=== PATIENT | female | born 1965 | race Hispanic/Latino ===

== ENCOUNTER 2017-12-25 15:14 | Outpatient (CLI) | payer OTHER ==
--- NOTE | 2017-12-25 16:46 | RAD ---
LEFT ELBOW RADIOGRAPHS FOUR VIEWS: Date: 12-25-17 Provided Clinical History: Left elbow pain. FINDINGS: There is no evidence for fracture or other acute osseous abnormality. Alignment appears anatomic. Karla nt spaces appear preserved. No evidence for elbow joint capsular distention. IMPRESSION: No evidence for an acute osseous abnormality or significant arthropathy. POS: [facility]
--- NOTE | 2017-12-25 17:29 | MRI ---
MRI OF THE LEFT ELBOW: Date: 12/25/17 PROVIDED CLINICAL HISTORY: Lateral epicondylitis. FINDINGS: The biceps, brachialis, and triceps insertions appear normal. There is low grade partial thickness undersurface tearing involving the common extensor tendon origin . There is minimal partial thickness interstitial tearing involving the common flexor tendon origin. The medial and lateral elbow ligaments appear intact. The amount of fluid within the elbow joint appears physiologic. No focal concerning regional marrow or muscular signal abnormality is evident. The courses of the reg ional major neurovascular structures appear unremarkable. IMPRESSION: 1. Partial thickness undersurface tearing involving the common extensor tendon origin. 2. Small partial thickness interstitial tear involving the common extensor tendon origin. POS: [facility]
== END 2017-12-25 15:15 | disposition home or self-care (01) ==
LOC: TBSIIMAG 15:14
PROVIDERS: ATTEND Emergency Medicine
DX: M77.12 Lateral epicondylitis, left elbow (principal); S56.512A Strain of other extensor muscle, fascia and tendon at forearm level, left arm, initial encounter